=== PATIENT | female | born 1985 | race Asian ===

== ENCOUNTER 2017-01-30 01:00 | Inpatient (IN) | payer OTHER ==
[~2017-01-30] VITALS: Ht 167.6 cm; Wt 79.8 kg
[2017-01-30] MEDS ORDERED: OXYTOCIN 20 UNITS/LR PREMIX 1,000 ML IV SCH (02:51)
[2017-01-30] MEDS ORDERED: METHYLERGONOVINE 0.2 MG/ML AMP IM SCH (02:55)
[2017-01-30] MEDS ORDERED: CARBOPROST 250 MCG/ML AMP IM PRN (02:55)
[2017-01-30] MEDS ORDERED: NALBUPHINE 10 MG/ML AMP IVP PRN (02:55)
[2017-01-30] MEDS ORDERED: IBUPROFEN 800 MG TAB PO PRN (02:55)
[2017-01-30] MEDS ORDERED: PROMETHAZINE 25 MG/ML VIAL IVP PRN (02:55)
[2017-01-30] MEDS ORDERED: AMPICILLIN 2,000 MG in NACL 0.9% 100 ML IV SCH (02:55)
[2017-01-30] MEDS ORDERED: AMPICILLIN 2,000 MG VIAL ONE (03:09)
[2017-01-30] MEDS: LACTATED RINGERS 1,000 ML IV SCH ×2 (03:15→13:03)
[2017-01-30 03:33] LABS: BASOPHILS # (AUTO) 0.1 K/uL (0.00-0.22); EOSINOPHILS # (AUTO) 0.1 K/uL (0-0.4); EOSINOPHILS % (AUTO) 0.8 % (0.0-4.0); HEMATOCRIT 41.6 % (36-48); HEMOGLOBIN 13.4 g/dL (12.0-16.0); LYMPHOCYTES # (AUTO) 2.5 K/uL (2.5-16.5); LYMPHOCYTES % (AUTO) 21.3 % (20.5-51.1); MEAN CORPUSCULAR HEMOGLOBIN 28 pg (27-31); MEAN CORPUSCULAR HGB CONC 32 g/dL (33-37); MEAN CORPUSCULAR VOLUME 88 fL (80-94); MONOCYTES # (AUTO) 0.8 K/uL (0.8-1.0); MONOCYTES % (AUTO) 7.3 % (1.7-9.3); NEUTROPHILS # (AUTO) 8.1 K/uL (1.8-7.7); NEUTROPHILS % (AUTO) 69.6 % (42.2-75.2); PLATELET COUNT (AUTO) 213 K/uL (140-450); RED BLOOD CELL COUNT(AUTO) 4.73 MIL/uL (4.20-5.40); RED CELL DISTRIBUTION WIDTH 13.5 % (11.6-13.7); WHITE BLOOD COUNT (AUTO) 11.6 K/uL (4.8-10.8)
[2017-01-30] MEDS ORDERED: CLINDAMYCIN 900 MG/6 ML VIAL IV ONE ×2 (03:44→09:43)
[2017-01-30] MEDS: CLINDAMYCIN 900 MG in NACL 0.9% 100 ML IV SCH ×2 (03:47→09:46)
[2017-01-30 03:58] LABS: APPEARANCE,URINE HAZY (CLEAR); BILIRUBIN,URINE NEGATIVE (NEGATIVE); BLOOD, URINE 3+ (NEGATIVE); COLOR,URINE YELLOW (YELLOW); LEUKOCYTE ESTERASE ,URINE NEGATIVE (NEGATIVE); NITRITE, URINE NEGATIVE (NEGATIVE); PROTEIN,URINE 1+ (NEGATIVE); UGLUCOSE NEGATIVE (NEGATIVE); UROBILINOGEN,URINE 0.2 EU/dL (0.2 - 1)
[2017-01-30] MEDS ORDERED: OXYTOCIN 20 UNITS/LR PREMIX 1,000 ML IV ONE (04:00)
[2017-01-30] MEDS ORDERED: AMPICILLIN 1,000 MG VIAL IVP SCH (04:00)
[2017-01-30 04:13] LABS: BACTERIA,URINE 4+ /HPF (None Seen); CALCIUM OXALATE CRYSTALS,UR 0-3 /HPF (None Seen); MUCUS,URINE 3+ /LPF (None Seen); RBC,URINE 30-40 /HPF (0-5); WBC,URINE 0-3 /HPF (0-5)
[2017-01-30 04:14] LABS: URINE AMORPHOUS URATE 2+ /HPF (None Seen)
[2017-01-30 04:14] LABS: HIV RAPID SCREEN NON-REACTIVE (NON REACTIV)
[2017-01-30 04:26] VITALS: BP 128/84
[2017-01-30] MEDS ORDERED: BUPIVACAINE 0.125%/NS PREMIX 250 ML ONE (06:10)
[2017-01-30 06:15] LABS: RAPID PLASMA REAGIN NON-REACTIVE (Non Reactiv)
[2017-01-30] MEDS ORDERED: ONDANSETRON 8 MG in NACL 0.9% 50 ML IV PRN (06:40)
[2017-01-30] MEDS ORDERED: ONDANSETRON 4 MG/2 ML VIAL ONE (06:52)
--- NOTE | 2017-01-30 09:17 | NUR ---
PATIENT HAS BEEN SCREENED AND CATEGORIZED LOW NUTRITION RISK. PATIENT WILL BE SEEN WITHIN 7 DAYS OF ADMISSION. 02/05/[address]
[2017-01-30] MEDS ORDERED: CLINDAMYCIN 900 MG in NACL 0.9% 100 ML IV SCH (11:17)
[2017-01-30] MEDS ORDERED: OXYTOCIN 10 UNITS/ML VIAL IM ONE (13:00)
[2017-01-30] MEDS ORDERED: OXYTOCIN 10 UNITS/ML VIAL ONE (13:56)
[2017-01-30] MEDS ORDERED: oxyCODONE/APAP 5/325 MG 1 TAB TAB PO PRN (17:50)
[2017-01-30] MEDS ORDERED: MEASLES, MUMPS, AND RUBELLA 1 VIAL SQVAC PRN (17:50)
[2017-01-30] MEDS ORDERED: BENZOCAINE/MENTHOL 20%-0.5% 60 GM CAN TP PRN (17:50)
[2017-01-30] MEDS ORDERED: WITCH HAZEL 40 PAD PACKAGE TP PRN (17:50)
[2017-01-30] MEDS ORDERED: TEMAZEPAM 15 MG CAP PO PRN (17:50)
[2017-01-30] MEDS ORDERED: OXYTOCIN 10 UNITS/ML VIAL IM PRN (17:50)
[2017-01-30] MEDS ORDERED: METHYLERGONOVINE 0.2 MG/ML AMP IM PRN (17:50)
[2017-01-30] MEDS: IBUPROFEN 800 MG TAB PO PRN (18:10)
[2017-01-30] MEDS ORDERED: IBUPROFEN 800 MG TAB ONE (18:13)
[2017-01-30] MEDS ORDERED: DOCUSATE SOD/SENNA 50/8.6 MG 1 TAB PO SCH (21:00)
[2017-01-30] MEDS: HYDROcodone/APAP 5/325 MG 1 TAB TAB PO PRN (21:24)
[2017-01-31] MEDS: HYDROcodone/APAP 5/325 MG 1 TAB TAB PO PRN ×2 (03:07→12:21)
[2017-01-31] MEDS: IBUPROFEN 800 MG TAB PO PRN ×2 (06:27→20:12)
[2017-01-31 06:44] LABS: HEMATOCRIT 35.1 % (36-48); HEMOGLOBIN 11.4 g/dL (12.0-16.0)
[2017-02-01] MEDS: IBUPROFEN 800 MG TAB PO PRN (08:54)
[2017-02-01] MEDS ORDERED: IBUP-2213 PO (09:01)
[2017-02-01 16:50] LABS: HEPATITIS B SURFACE ANTIGEN Negative (Negative)
[2017-02-02 11:33] LABS: RUBELLA AB IGG <0.90 index (Immune >0.99)
== END 2017-02-01 13:50 | disposition home or self-care (01) | DRG 775 ==
LOC: MFCC 01:00
PROVIDERS: ADMIT Obstetrics & Gynecology; ATTEND Obstetrics & Gynecology
PROC: 10E0XZZ Delivery of Products of Conception, External Approach (ICD-10-PCS; principal; 2017-01-30)
PROC: 0KQM0ZZ Repair Perineum Muscle, Open Approach (ICD-10-PCS; 2017-01-30)
PROC: 0W8NXZZ Division of Female Perineum, External Approach (ICD-10-PCS; 2017-01-30)
PROC: 3E0S3CZ (ICD-10-PCS; 2017-01-30)
PROC: 00HU33Z Insertion of Infusion Device into Spinal Canal, Percutaneous Approach (ICD-10-PCS; 2017-01-30)
DX: O42.92 Full-term premature rupture of membranes, unspecified as to length of time between rupture and onset of labor (principal); O69.81X0 Labor and delivery complicated by cord around neck, without compression, not applicable or unspecified; O70.1 Second degree perineal laceration during delivery; Z37.0 Single live birth; Z3A.37 37 weeks gestation of pregnancy; Z28.21 Immunization not carried out because of patient refusal; Z88.0 Allergy status to penicillin
CPT/HCPCS: 36415; 51702; 59409; 81001; 85018; 85025; 86592; 86762; 86886; 86900; 86901; 87086; 87340; J0290; J2405; J2590; J3490; J7030; J7120